=== PATIENT | female | born 1975 | race Caucasian/White ===

== ENCOUNTER → 2021-11-21 | Outpatient (CLI) | payer OTHER | LOC: HEART 5 09:35 | DX: J44.9 Chronic obstructive pulmonary disease, unspecified (principal); Z72.0 Tobacco use; R94.2 Abnormal results of pulmonary function studies | CPT/HCPCS: 94060; 94729 ==

== ENCOUNTER → 2022-01-06 | Outpatient (CLI) | payer OTHER | LOC: RT 15:26 | DX: R09.02 Hypoxemia (principal); J98.11 Atelectasis; Z99.81 Dependence on supplemental oxygen | CPT/HCPCS: 36600; 71046; 82803 ==